=== PATIENT | male | born 1950 | race Caucasian/White ===

== ENCOUNTER 2017-10-23 16:34 | Emergency (ER) | payer MEDICARE ==
[~2017-10-23] VITALS: Ht 170.2 cm; Wt 63.5 kg
[~2017-10-23 16:34] MED LIST: ALBUTEROL-200 PUFFS/ IH; LEVAQUIN500 MG PO; PREDNISONE 20MG20 MG PO
--- NOTE | 2017-10-23 17:01 | Emergency Room Report ---
History of Present Illness Time Seen by [id number] Presenting Problem in Triage Pt arrived:Walked Presenting Problem:PT REPORTS FALLS X3 DAYS, PT AND FAMILY REPORT THAT PT HAS BEEN FALLING MORE FREQUENTLY X2 WEEKS. PT REPORTS "FEELING LIKE DRAGGING LEFT LEG" X2 DAYS. 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 N Clinical Suspician of Infection? N Mental Status: 1 - Regular (Normal Baseline) Sepsis Risk:Low Sepsis Risk Have you (or family members/close friends) recently traveled outside the [place]? N If Yes, where/when: Have you had exposure to infectious disease within the past month? N TB? Other? Specify: Patient states she's had LEFT leg weakness for the past 2 days and his fall more in the past couple days. Family states it's been more often than that over the past couple weeks. He denies any lightheadedness he states he has like a shuffling gait and then stumbles and falls he denies any loss of consciousness or near syncopal feeling. She has a mild headache and that he has neck soreness, denies hitting his head. Denies any chest pain palpitations shortness of breath or abdominal pain. The denies any confusion or trouble talking. He denies any arm weakness. ALLERGIES Coded Allergies: No Known Allergies (02/12/16) History Medical History General CAD? No Angina: No TN: No Hypertension? Yes Hyperlipidemia? No CHF? No DVT? No PE? No COPD? Yes Asthma? No Anemia? No GERD? No Gastric ulcers? No GI Bleed? No Hernia? No Thyroid Problems? No Hypothyroidism? No CVA? No Seizures? No Diabetes? No Renal Insuffiency? No End Stage Renal Disease? No UTI? No Stones? No GB Disease: No Nephritic Syndrome? No Asplenia? No Hepatitis? No Sickle Cell Disease? No Arthritis? No Migraines? No Cataracts? No Glaucoma? No MRSA? No HIV? No TB? No Anxiety? No Depression? No Cancer? No More? No Immunization Hx DT/Tetanus 1-4 Years Ago Flu 2YRSorMore Pneumonia NEVER Surgical Hx Previous Surgery?Y SKIN GRAFT TO LEFT LEG Family History Family Hx Diabetes No CAD No Hypertension Yes Hyperlipidemia No Cancer No TB No Social History Smoking Hx Smoker: Current Every Day Smoker Tobacco: Yes Type Cigarettes Packs/day 1 1/2 - 2 Packs Alcohol Alcohol: No Review of Systems All Other Systems Reviewed and Negative Physical Exam Vital Signs Vital Signs Date Time Temp Pulse Resp B/P Pulse O2 O2 Flow FiO2 Ox Delivery Rate 10/23 1803 98.3 65 16 169/76 97 10/23 1638 98.3 61 16 126/80 97 General Appearance: Nontoxic Head: Normocephalic, without obvious abnormality, atraumatic. Eyes: conjunctiva/corneas clear ENT: Mucous membranes moist. Neck: No jugular venous distention. supple no bruit Cardiac: regular rate and rhythm Lungs: Clear to auscultation bilaterally Abdomen: Nontender, Nondistended, positive bowel sounds, no rebound : No CVA tenderness Extremities: no edema Musculoskeletal: No chest wall tenderness Skin: No rashes or lesions to exposed skin. Neurologic: Alert. Alert and oriented x3 Cranial nerves intact Strength 4 out of 5 rle, his grasp appears pretty equal sides I can't really get some of his R upper extremity except on the downward drift exam. Sensation intact to light touch holds both legs off the bed LEFT leg has a downward drift The LEFT arm has a downward drift Finger to nose intact Psychiatric: Normal affect (Devan WICK, Yury) General Appearance normal appearance Respiratory Status No: respiratory distress. Cardiovascular normal exam Neurologic alert Medical Decision Making LABS/Meds/Orders Pt receiving controlled substance in ED? No Comment not candidate for TPA symptoms sx for 2 days or more 550pm RN state sudural, dw radiologist patient has a RIGHT frontoparietal large subdural hematoma 2.8-3 cm that looks 2 weeks old or so throughout the extent of it but that there is been some rebleed anteriorly and that there is some subfalcine shift around 7-8 mm, we have a call out to [facility] for transfer. 559 dw patient family, sbp 142. CT cspine negative per RN report per radiology. Family does say that was a fall about a month and a half ago around 20 feet. Denies any injuries from fall currently. He also states that he is not on any aspirin not on any blood thinners. yenny Fulton accepts in transfer. desires keppra, BP less than 160. ground transfer, states will be stable. Results/Orders Laboratory Tests 10/23/17 1700: Sodium 144, Potassium 4.0, Chloride 107, Carbon Dioxide 28, BUN 24 H, Creatinine 1.5 H, Estimated Creat Clear 42 L, Estimated GFR (MDRD) 46, Glucose 132 H, Calcium 9.0, Total Bilirubin 0.2, AST 15, ALT 18, Alkaline Phosphatase 318 H, Troponin I < 0.02, Total Protein 6.8, Albumin 3.5, Globulin 3.3 H, Albumin/Globulin Ratio 1.1, WBC 11.2 H, RBC 4.46 L, Hgb 13.9 L, Hct 40.5 L, MCV 90.9, RDW 13.0, Plt Count 342, MPV 7.4, Gran % 78.2, Gran # 8.7 H, Lymphocytes % 14.1, Monocytes % 4.9, Eosinophils % 1.7, Basophils % 1.1, Lymphocytes # 1.6, Monocytes # 0.6, Eosinophils # 0.2, Basophils # 0.1, PUBS MCHC 34.3, MCH 31.2 Current Medication Orders Sig/Lisa Start time Last Medication Dose Route Stop Time Status Admin Sodium Chloride 10 ML PRN PRN 10/23 1700 AC IV 10/24 1657 Orders Procedure Date/time Status DIET-NOTHING BY MOUTH 10/23 D Active IV SALINE LOCK 10/23 1657 Active ELECTROCARDIOGRAM REQUEST 10/[address] HEAD REQ 10/[address] SCAN REQUEST 10/23 1656 Complete TROPONIN I 10/23 1656 Complete CBC WITH AUTO DIFF 10/23 1656 Complete CHEM 12 PROFILE 10/23 1656 Complete Departure Departure Time of Disposition 1753 Disposition DC/XFER from ER to [facility] Clinical Impression Primary Impression: Subdural hematoma Condition STABLE Referrals Bakari Mcgrath MD (Family) ED Critical Care Critical Care Yes Time spent 30-74 min Vital system(s) involved: Central Nervous System I was present at bedside for Coordinating pt's care, Interpreting EKGs/Strips , During my initial exam, Reviewing lab results, Reviewing old records, Discussing pt condition, For re-examinations, Examining radiographs
[2017-10-23 17:16] LABS: HEMOGLOBIN 13.9 g/dL (14.1-18.0); LYMPH # 1.6 K/mm3 (0.7-4.5); LYMPH % 14.1 % (10-50)
--- OUTSIDE RECORDS SUMMARY | 2017-10-23 17:17 | External Medical Summary Rpt | CCD ---
Author Author , RAJIV MARSHALL Address Unknown Phone [email or web address] Purpose Continuity of Care Document - through 2016 Problems Code Diagnosis DOS Provider Status E55.9 VITAMIN D DEFICIENCY, UNSPECIFIED J44.0 CHRONIC OBSTRUCTIVE PULMON DISEASE W ACUTE LOWER RESP INFCT R53.83 OTHER FATIGUE R74.8 ABNORMAL LEVELS OF OTHER SERUM ENZYMES Z12.5 ENCOUNTER FOR SCREENING FOR MALIGNANT NEOPLASM OF PROSTATE
--- OUTSIDE RECORDS SUMMARY | 2017-10-23 17:17 | External Medical Summary Rpt | CCD ---
Author Author [employer] Organization [employer] Address Unknown Phone Unavailable Purpose Continuity of Care Document - through 2016
--- OUTSIDE RECORDS SUMMARY | 2017-10-23 17:17 | External Medical Summary Rpt | CCD ---
Demographics Preferred Language Mohawk Marital Status Unknown Gnosticist Affiliation Unknown Race Unknown Ethnic Group Unknown Author Author RAJIV Address Unknown Phone Immunization No patient found.
--- OUTSIDE RECORDS SUMMARY | 2017-10-23 17:17 | External Medical Summary Rpt | CCD ---
Demographics Preferred Language Mongolian Marital Status Unknown Gnosticist Affiliation Unknown Race Unknown Ethnic Group Unknown Author Author RAJIV Address Unknown Phone Immunization No patient found.
--- OUTSIDE RECORDS SUMMARY | 2017-10-23 17:17 | External Medical Summary Rpt | CCD ---
Author Author , RAJIV MARSHALL Address Unknown Phone [email or web address] Purpose Continuity of Care Document - through 2016 Problems Code Diagnosis DOS Provider Status E55.9 VITAMIN D DEFICIENCY, UNSPECIFIED J44.0 CHRONIC OBSTRUCTIVE PULMON DISEASE W ACUTE LOWER RESP INFCT R53.83 OTHER FATIGUE R74.8 ABNORMAL LEVELS OF OTHER SERUM ENZYMES Z12.5 ENCOUNTER FOR SCREENING FOR MALIGNANT NEOPLASM OF PROSTATE
[2017-10-23 17:29] LABS: BUN 24 mg/dL (7-18)
[2017-10-23 17:32] LABS: GFR (ESTIMATED) 46 ML/MIN (>60)
--- NOTE | 2017-10-23 18:00 | RADIOLOGY REPORT PS360 ---
CT HEAD W/O CONTRAST COMPARISON: None HISTORY: Patient fell twice today, unsteady gait dizziness neck pain TECHNIQUE: Multiaxial scans obtained from base skull to the vertex and were performed without IV contrast. FINDINGS: The base of skull is normal, the mastoids are clear. The ventricular system is normal however there is prominent midline shift from right to left. There is a large somewhat isodense subdural hematoma indicating is somewhat chronic. Subacute very however there is fresh blood in the anterior aspect of the subdural hematoma adjacent to the right frontal parietal lobe suggesting rebleed. As mentioned is prominent subfalcine shift from right to left measuring 5 8-mm. The width of the subdural hematoma measures up to prostate 2.8 to 3 cm. There is evidence of increased intracranial pressure with effacement of the cortical sulci in the right posterior parietal and occipital lobe. The left cerebral hemisphere appears grossly normal. The bony calvarium appears intact. IMPRESSION: Large basically isodense subdural hematoma with fresh blood in the anterior aspect of the hematoma suggesting subacute subdural hematoma with the rebleeding in the anterior aspect .
--- NOTE | 2017-10-23 18:02 | RADIOLOGY REPORT PS360 ---
CT CERVICAL SPINE W/O CONT COMPARISON: CT scan soft tissue neck for 2010 HISTORY: Neck pain after a fall TECHNIQUE: Multiple axial scans of cervical spine were obtained. Sagittal and coronal reformats were evaluated as well. FINDINGS: There is normal curvature and alignment. Is no fracture or subluxation. Disc spaces are well maintained throughout. The spinal canal is normal in size throughout. There is no abnormal disc protrusion. The prevertebral soft tissues are normal and the odontoid is normal. IMPRESSION: Grossly unremarkable CT scan cervical spine
[2017-10-23] MEDS ORDERED: LISINOPRIL PO (18:26)
[2017-10-23 18:49] VITALS: BP 146/78
== END 2017-10-23 18:49 | disposition short-term general hospital (02) ==
LOC: ER 16:34
PROVIDERS: Emergency Medicine
DX: S06.5X9A Traumatic subdural hemorrhage with loss of consciousness of unspecified duration, initial encounter (principal); W18.30XA Fall on same level, unspecified, initial encounter; Y92.019 Unspecified place in single-family (private) house as the place of occurrence of the external cause
CPT/HCPCS: J1953